=== PATIENT | male | born 1960 | race Caucasian/White ===

== ENCOUNTER 2021-01-04 18:57 | Observation (INO) | payer OTHER ==
[~2021-01-04] VITALS: Ht 165.1 cm; Wt 67.6 kg
--- NOTE | ~2021-01-04 | CON ---
[address] [address] CONSULTATION Name: EUGENIEHOMERO P Room: [address] Hima Vogel#: [id number] Admission: 01/04/21 Attend Phys: Jian Hartmann Discharge: Date of : 62 Report #: [id number] THIS REPORT FOR: cc: Rafaela Castrejon Linda J. DO ~ Genia Mccollum DO NEUROLOGY CONSULT HISTORY OF PRESENT ILLNESS: The patient is a 60-year-old male who states that he has had left-sided numbness and weakness of the left arm and leg beginning 1 day prior to admission, however, he also stated that he has had difficulty with his left arm for a week. The patient had seen his primary care provider and was given medication for the discomfort in the left upper extremity. Apparently, he has a prescription for tramadol that he had taken on an as needed basis. The patient denies any difficulty with his speech. The left upper extremity is difficult to use. He cannot even use his left hand to grab his phone. The arm is so weak. He feels he has numbness from the proximal left upper extremity into the hand. He has also been having some difficulty walking, nothing makes this better or worse. He was not taking aspirin prior to this event. He does have a history of hypertension and had been taking medication for that. When the patient came to the Emergency Room, he had a CT of the head, which showed no acute intracranial abnormality. He has also had a CT of the chest, which showed no evidence of pulmonary embolism or aortic dissection. There has been no improvement in his symptoms since they began. PAST MEDICAL HISTORY: Hepatitis C, hypertension, anxiety, insomnia, alcoholism. PAST SURGICAL HISTORY: Right knee surgery. MEDICATIONS: Lisinopril 10 mg daily, pantoprazole 40 mg daily. The patient is now on aspirin 325 mg daily. ALLERGIES: None. PHYSICAL EXAMINATION: VITAL SIGNS: Temperature 36.7, pulse rate 72, respiratory rate 16, blood pressure 145/87. On admission, his blood pressure was 180/113. Bedside pulse oximetry 98% on room air. NEUROLOGIC: Cranial nerves 2-12 are grossly intact. Motor exam demonstrates symmetrical strength with the exception of the left upper extremity where the patient has generalized weakness in the hand. The patient also appears to have some swelling in the hand. He cannot flex or extend his fingers. Reflexes are symmetrical throughout. Plantar responses are flexor. The patient is wearing [address] [place] [address] CONSULTATION Name: EUGENIEHOMERO P Room: [address]#: [id number] Admission: 01/04/21 Attend Phys: Jian Hartmann Discharge: Date of : 62 Report #: [id number] an ankle bracelet on the left lower extremity. Coordination demonstrates no evidence of dysmetria. It is more difficult for him to perform this on the left with the weakness in the arm. LABORATORY DATA: Hematology: White blood cell count 7.5, hemoglobin 15.9, hematocrit 46.6, MCV 92.4, platelet count 243,000. Coagulation: INR 1. Chemistry: Sodium 141, potassium 3.6, chloride 105, carbon dioxide 28, BUN 17, creatinine 1, GFR 76, glucose 87, calcium 8.4, magnesium 2.2. Iron studies normal. Liver functions normal. Lipid profile normal. Triglycerides 40, cholesterol 137, LDL cholesterol 74, HDL cholesterol 55. Lipase 207. B12 302. Folate 10.8. Toxicology negative. IMPRESSION: This patient will need an MRI of the head to rule out stroke. Certainly, he is at risk for stroke with his blood pressure. His cholesterol is good. He does smoke, so he does have some other risk factors for stroke aside from hypertension, At this point, he may continue aspirin 325 mg daily. The patient has had an echocardiogram and this was normal. As I said, the MRI head has been ordered and I will also order a carotid ultrasound as well. The patient was currently working with speech therapy when I was there, he will need occupational and physical therapy. I thank you for your kind referral of the patient and we will continue to follow him with you. By: 1235 [id number] Mccollum DO /nt
[~2021-01-04 18:57] MED LIST: CARAFATE 1 GM TA1 G1 PO; COLACE100 MG PO; FLEXERIL PO; LORAZEPAM 1 MG T1 M1 PO; MEDROLDOSEPACK PO; NOHOMEMEDICATIONS; PROTONIX40 M2 PO; TOPROL XL100 MG PO; ULTRAM 50MG TAB50 MG PO; ZOLOFT 50 MG TA50 M1 PO
[2021-01-04 19:02] VITALS: BP 180/113
[2021-01-04] MEDS ORDERED: ZESTRIL10 MG PO (19:06)
[2021-01-04 19:26] LABS: ABSOLUTE EOSINOPHILS 0.2 thou/uL (0.0-0.7); ABSOLUTE LYMPHOCYTES 2.5 thou/uL (0.8-5.3); ABSOLUTE MONOCYTES 0.8 thou/uL (0.0-1.2); ABSOLUTE NEUTROPHILS 3.9 thou/uL (1.6-8.1); BASOPHILS 0.3 %; EOSINOPHILS 2.4 %; HEMATOCRIT 46.6 % (42.0-52.0); HEMOGLOBIN 15.9 gm/dL (14.0-18.0); LYMPHOCYTES 33.8 %; MCH 31.6 pg (26.0-34.0); MCHC 34.2 g/dL (28.0-37.0); MCV 92.4 fL (80.0-100.0); MONOCYTES 10.9 %; MPV 8.1 fl. (7.2-11.1); NUCLEATED RBCS 0 /100WBC; PLATELET COUNT* 243 thou/uL (150-400); POLYS 52.6 %; RBC 5.05 mil/uL (4.50-6.00); RDW-CV 14.2 % (10.5-14.5); WBC 7.5 thou/uL (4.0-11.0)
[2021-01-04 19:37] LABS: CALCIUM 8.4 mg/dL (8.5-10.1); POTASSIUM 3.6 mmol/L (3.5-5.1)
[2021-01-04 19:39] LABS: PROTIME 10.4 Seconds (9.20-11.50)
[2021-01-04 19:42] LABS: AMP/METHAMP Negative (Negative); BARBITURATES Negative (Negative); BENZODIAZEPINES Negative (Negative); COCAINE Negative (Negative); METHADONE Negative (Negative); OPIATES Negative (Negative); PCP Negative (Negative); THC Negative (Negative)
[2021-01-04 19:47] LABS: ALBUMIN 3.8 g/dL (3.4-5.0); MAGNESIUM 2.2 mg/dL (1.8-2.4); TOTAL BILIRUBIN 0.7 mg/dL (<0.1-1.0); TOTAL PROTEIN 7.2 g/dL (6.4-8.2)
[2021-01-05 00:31] VITALS: BP 118/68
[2021-01-05 03:58] VITALS: BP 132/75
[2021-01-05 07:46] LABS: CHOLESTEROL 137 mg/dL (<200); HDL CHOLESTEROL 55 mg/dL (>40); LDL CHOLESTEROL 74 mg/dL (<100); TC:HDL 2.5 Ratio (Not establshd); TRIGLYCERIDE 40 mg/dL (<150); VLDL 8 mg/dL (<40)
[2021-01-05 07:49] LABS: SERUM ASSESSMENT Clear
[2021-01-05 08:00] VITALS: BP 151/87
[2021-01-05 12:00] VITALS: BP 145/87
--- NOTE | 2021-01-05 12:18 | 2DMMODE ---
[place] [address] 2 D/M-MODE ECHOCARDIOGRAM Name: HOMERO TRAORE Room: [address] Hima Vogel#: [id number] Admission: 01/04/21 Attend Phys: Eligio Dash Discharge: Date of : 62 Date of Service: 01/05/21 1218 Report #: [id number] THIS REPORT FOR: cc: Rafaela Castrejon,Rafaela Villarreal,Domenico Antonio MD [facility] ~ APPROVED REPORT Study performed: 01/05/2021 09:40:09 EXAM: Comprehensive 2D, Doppler, and color-flow Echocardiogram Patient Location: In-Patient Room #: 220 Status: routine BSA: 1.75 HR: 56 bpm BP: 132/75 mmHg Rhythm: NSR Other Information Study Quality: Good Indications Hypertension/HDD 2D Dimensions IVSd: 11.01 (7-11mm) LVOT Diam: 20.02 (18-24mm) LVDd: 46.66 mm PWd: 9.92 (7-11mm) Ascending Ao: 34.58 (22-36mm) LVDs: 26.16 (25-40mm) Aortic Root: 31.81 mm Volumes Left Atrial Volume (Systole) LA ESV Index: 28.50 mL/m2 Aortic Valve AoV Peak Guillermo.: 1.27 m/s AO Peak Gr.: 6.46 mmHg LVOT Max P.39 mmHg AO Mean Gr.: 3.37 mmHg LVOT Mean P.80 mmHg LVOT Max V: 1.16 m/s AO V2 VTI: 24.22 cm LVOT Mean V: 0.78 m/s MAGDALENE (VTI): 2.98 cm2 LVOT V1 VTI: 22.96 [place] [address] 2 D/M-MODE ECHOCARDIOGRAM Name: HOMERO TRAORE Room: [address] MJustoR.#: [id number] Admission: 01/04/21 Attend Phys: Eligio Dash Discharge: Date of : 62 Date of Service: 01/05/21 1218 Report #: [id number] Mitral Valve E/A Ratio: 1.22 MV Decel. Time: 236.20 ms MV E Max Guillermo.: 0.71 m/s MV PHT: 68.50 ms MVA (PHT): 3.21 cm2 TDI E/Lateral E': 7.10 E/Medial E': 7.10 Medial E' Guillermo.: 0.10 m/s Lateral E' Guillermo.: 0.10 m/s Pulmonary Valve PV Peak Guillermo.: 1.12 m/s PV Peak Gr.: 5.06 mmHg Tricuspid Valve RAP Estimate: 5.00 mmHg TR Peak Gr.: 18.19 mmHg RVSP: 23.00 mmHg PA Pressure: 23.00 mmHg Left Ventricle The left ventricle is normal size. There is normal LV segmental wall motion. There is normal left ventricular wall thickness. Left ventricular systolic function is normal. The left ventricular ejection fraction is within the normal range. LVEF is 60-65%. The left ventricular diastolic function is normal. Right Ventricle The right ventricle is normal size. The right ventricular systolic function is normal. Atria The left atrium size is normal. The right atrium size is normal. Aortic Valve The aortic valve is normal in structure. No aortic regurgitation is present. There is no aortic valvular stenosis. Mitral Valve The mitral valve is normal in structure. Trace mitral regurgitation. No evidence of mitral valve stenosis. Tricuspid Valve The tricuspid valve is normal in structure. Mild tricuspid regurgitation. [place] [address] 2 D/M-MODE ECHOCARDIOGRAM Name: HOMERO TRAORE Room: [address] M.R.#: [id number] Admission: 01/04/21 Attend Phys: Eligio Dash Discharge: Date of : 62 Date of Service: 01/05/21 1218 Report #: [id number] Pulmonic Valve The pulmonary valve is normal in structure. There is no pulmonic valvular regurgitation. Great Vessels The aortic root is normal in size. IVC is normal in size and collapses >50% with inspiration. Pericardium There is no pericardial effusion. <Conclusion> The left ventricle is normal size. Left ventricular systolic function is normal. The left ventricular ejection fraction is within the normal range. LVEF is 60-65%. The left ventricular diastolic function is normal. The right ventricle is normal size. The left atrium size is normal. The aortic valve is normal in structure. The mitral valve is normal in structure. The tricuspid valve is normal in structure. IVC is normal in size and collapses >50% with inspiration. There is no pericardial effusion. There is normal LV segmental wall motion. <ELECTRONICALLY SIGNED> By: Domenico Arora MD, FACC 01/05/211217 17 17 Domenico Arora MD, FACC /INF
--- NOTE | 2021-01-05 12:39 | EKG ---
[place] [address] ELECTROCARDIOGRAM REPORT Name: HOMERO TRAORE Room: [address] M.R.#: [id number] Admission: 01/04/21 Attend Phys: Eligio Dash Discharge: Date of : 62 Date of Service: 01/04/21 1908 Report #: [id number] THIS REPORT FOR: //name// [facility] ED Test Date: 2021-01-04 Test Time: 19:08:45 Pat Name: HOMEROLinda TRAORE Department: Room: [facility] Gender: M Dealership Manager: MR : [id number] Requested By: Cori Green Order Number: [id number] MD: Domenico Arora Measurements Intervals [place] Rate: 70 P: 34 OR: 167 QRS: -50 QRSD: 95 T: 27 QT: 410 QTc: 443 Interpretive Statements Sinus rhythm Probable left atrial enlargement Abnormal R-wave progression, late transition Inferior infarct, old Compared to ECG 04/25/2013 19:59:30 Atrial premature complex(es) no longer present Myocardial infarct finding still present Electronically Signed On 01-05-2021 12:39:38 BREAKFAST [employer] ATTENDANT by Domenico Arora [email or web address] <ELECTRONICALLY SIGNED> By: Domenico Arora MD, [facility] 01/05/21 1239 190 190 Domenico Arora MD, [facility] /EPI
[2021-01-05] MEDS ORDERED: AMOX TR-K CLV1 EAC4 PO (13:20)
[2021-01-05] MEDS ORDERED: ASPIRIN325 PO (13:20)
[2021-01-05] MEDS ORDERED: B12INJ SUBQ (13:20)
[2021-01-05 19:01] VITALS: BP 122/72
[2021-01-06 02:06] LABS: GLYCOHEMOGLOBIN (HGB A1C) 5.5 % (4.8-5.6)
== END 2021-01-05 22:32 | disposition short-term general hospital (02) ==
LOC: M.ERS 18:57 → M.2W 22:32 → M.TBA-ER 22:32 → M.2W 01-05 00:21
PROVIDERS: Internal Medicine; Personal Emergency Response Attendant; ADMIT Internal Medicine; ATTEND Internal Medicine
DX: R53.1 Weakness (principal); R27.0 Ataxia, unspecified; R20.0 Anesthesia of skin; Z20.822 Contact with and (suspected) exposure to COVID-19; R60.0 Localized edema; G47.00 Insomnia, unspecified; E53.8 Deficiency of other specified B group vitamins; I10 Essential (primary) hypertension; F41.9 Anxiety disorder, unspecified; F10.20 Alcohol dependence, uncomplicated; Z79.899 Other long term (current) drug therapy; Z86.19 Personal history of other infectious and parasitic diseases; Y90.9 Presence of alcohol in blood, level not specified